=== PATIENT | male | born 1965 | race Caucasian/White ===

== ENCOUNTER 2025-01-16 12:46 | Emergency (ER) | payer OTHER, MEDICAID, SELFPAY ==
[2025-01-16 12:53] VITALS: BP 151/91; PULSE 80; TEMP 37; O2SAT 98; BMI 31.2
[2025-01-16 13:02] VITALS: O2SAT 98
[2025-01-16 13:08] LABS: Hematocrit 45.5 % (42.0-54.0); Hemoglobin 15.5 g/dL (14.0-18.0); Immature Granulocytes Abs Auto 0.02 10^3/uL (0.00-0.03); Immature Granulocytes Pct Auto 0.3 % (0.0-0.5); Lymphocytes Absolute Auto 2.4 10^3/uL (1.2-3.8); Mean Corpuscular HGB Conc 34.1 g/dL (29.9-35.2); Mean Corpuscular Hemoglobin 30.0 pg (25.9-34.0); Mean Corpuscular Volume 88.0 fL (80.0-94.0); Platelet Count 227 10^3/uL (150-450); Red Blood Count 5.17 10^6/uL (4.70-6.10); White Blood Count 7.7 10^3/uL (4.0-11.0)
[2025-01-16 13:09] LABS: Glucose Urine UA 100 mg/dL (NEGATIVE)
--- NOTE | 2025-01-16 13:15 | CT_ITS ---
The [address] [address] Patient Name: LEIGHA NUNEZ MRN: [id number] date: 1965 Sex: M Assigned Patient Location: ER Current Patient Location: ER Accession/Order Number: [id number] Exam Date: 01/16/2025 13:35 Report Date: 01/16/2025 14:16 At the request of: JACQUIE DUGAN MD Procedure: CT abdomen pelvis wo con CT abdomen pelvis wo con 01/16/2025 1:52 PM SIGNS AND SYMPTOMS: ^left flank pain, blood in stool TECHNIQUE: Multidetector ct axial images of the abdomen and pelvis were obtained without IV contrast. Multiplanar reformats were performed and reviewed to further define anatomy and possible pathology. CT was performed with one or more of the following dose reduction techniques: Automated exposure control, adjustment of the mA and/or kV according to patient size, or use of iterative reconstruction technique. COMPARISON: None. FINDINGS: Lower Chest: There is dependent atelectasis in the lung bases. ABDOMEN: Liver: Within normal limits. Bile Ducts: Normal caliber. Gallbladder: Previously removed Pancreas: Within normal limits. Spleen: Within normal limits. Adrenals: Within normal limits. Kidneys: Within normal limits. Pelvis: Reproductive Organs: No pelvic masses. Ureters: Within normal limits. Bladder: Within normal limits. Bowel: Normal caliber. Mesenteric Lymph Nodes: No enlarged mesenteric lymph nodes. Peritoneum: No ascites or free air, no fluid collection. Vessels: Atherosclerotic changes are noted in the abdominal aorta. Retroperitoneum: Within normal limits. Abdominal Wall: Fat-containing inguinal hernias are present bilaterally. Bones: Degenerative changes are noted in the thoracolumbar spine. Degenerative changes are present in the sacroiliac joints. CT/CT abdomen pelvis wo con IMPRESSION: No bowel obstruction or obstructive uropathy. No free fluid. Fat-containing inguinal hernias are present bilaterally. Impression dictated by: Alejandro Puentes M.D. 01/16/2025 2:16 PM Dictation Location: [place] [address] Electronically authenticated by: [id number] Y Date: 01/16/2025 14:16
--- NOTE | 2025-01-16 13:21 | ED.ABDPAIN1 ---
HPI - Abdominal Pain General Chief Complaint: Abdominal Pain Stated Complaint: L FLANK PAIN RECTAL BLEEDING Time Seen by Provider: 01/16/25 13:00 Source: patient Mode of arrival: walk-in Limitations: no limitations History of Present Illness HPI narrative: The patient is 59 years old male is coming to the ER with a constipation associated with blood in stool since last night, patient mentioned that he also have the flank pain, no nausea no vomiting no decreased p.o. intake and the patient mentioned that he is diabetic although he is not taking his metformin because he did not like the way it made him feel Although he was not specific about that feeling and the patient does not have a primary care Related Data Home Medications ?Medication ?Instructions ?Recorded ?Confirmed cholestyramine (with sugar) 4 gram 1 ea PO BID 01/16/25 01/16/25 powder for susp in a packet pantoprazole 40 mg tablet,delayed 40 mg PO DAILY 01/16/25 01/16/25 release Allergies Allergy/AdvReac Type Severity Reaction Status Date / Time Penicillins Allergy Severe Rash Verified 01/16/25 12:57 Review of Systems ROS Status of ROS 10 or more systems reviewed and unremarkable except as noted in history and below PFSH PFSH Social History Little interest or pleasure in doing things: not at all Feeling down, depressed, or hopeless: not at all Exam Narrative Exam Narrative: Nurses notes and vital signs reviewed and patient is not hypoxic. General: Well-appearing and in no apparent distress. Skin: Warm, dry, no pallor noted. No rash. Head: Normocephalic, atraumatic. Neck: Supple, non-tender. Eye: Pupils are equal, round and EOMI. No scleral icterus. Cardiovascular: Regular Rate and Rhythm without murmur, gallop or rub. Respiratory: No accessory muscle use or respiratory distress. Lungs are clear to auscultation, no wheezing, rales or rhonchi Chest Wall: no tenderness Back: No midline thoracic or lumbar vertebral tenderness. No CVA tenderness Musculoskeletal: normal ROM, no calf or popliteal tenderness, no lower extremity edema/swelling GI: Abdomen is soft, non-distended. Normal bowel sounds. No masses appreciated. No tenderness to palpation. No rebound, guarding, or rigidity noted. Rectal examination shows no hemorrhoid and no active bleeding although occult blood is positive Neurological: A&O x4. No cranial nerve dysfunction observed. No truncal ataxia. Moves all extremities. Sensation intact. Psychiatric: Cooperative and interactive. Normal mood and affect. Constitutional Vital Signs, click to edit/add: Last Vital Signs Temp 98.6 F 01/16/25 12:53 Pulse 67 01/16/25 15:09 Resp 16 01/16/25 15:09 BP 114/82 01/16/25 15:09 Pulse Ox 97 01/16/25 15:09 O2 Del Method Room Air 01/16/25 13:02 Course Vital Signs Vital signs: Vital Signs Temperature 98.6 F 01/16/25 12:53 Pulse Rate 80 01/16/25 12:53 Respiratory Rate 20 01/16/25 12:53 Blood Pressure 151/91 H 01/16/25 12:53 Pulse Oximetry 98 01/16/25 12:53 Oxygen Delivery Method Room Air 01/16/25 12:53 Temperature 98.6 F 01/16/25 12:53 Pulse Rate 67 01/16/25 15:09 Respiratory Rate 16 01/16/25 15:09 Blood Pressure 114/82 01/16/25 15:09 Pulse Oximetry 97 01/16/25 15:09 Oxygen Delivery Method Room Air 01/16/25 13:02 MDM - Abdominal Pain MDM Narrative Medical decision making narrative: The patient presentation with the blood in stool could be secondary to constipation although the patient did not have an external hemorrhoid but he did mention that this happened after having a bowel movement twice since last night Patient does not take any anticoagulation he is not taking his metformin as well for his diabetes CBC and chemistry showed no acute significant pathology except for elevated blood sugar of 207 I did explain to the patient the importance of taking his metformin and having primary care follow-up The patient CAT scan of the abdomen showed no acute pathology and no kidney stone Urinalysis showed no UTI The patient right now we will continue managing his constipation with outpatient follow-up with his primary care Patient mentioned that when he was following up with his previous primary care he was told that his prostate testing shows elevated result and he need to follow-up with urology I did explain to him that he still need to follow-up with the primary care but the patient requested referral to Dr. Mccarty which he was provided with Lab Data Labs: Lab Results 01/16/25 01/16/25 01/16/25 Range/Units 13:00 13:01 13:10 WBC 7.7 (4.0-11.0) 10^3/uL RBC 5.17 (4.70-6.10) 10^6/uL Hgb 15.5 (14.0-18.0) g/dL Hct 45.5 (42.0-54.0) % MCV 88.0 (80.0-94.0) fL MCH 30.0 (25.9-34.0) pg MCHC 34.1 (29.9-35.2) g/dL RDW 11.9 (11.0-15.0) % Plt Count 227 (150-450) 10^3/uL MPV 9.5 (9.5-13.5) fL Neut % (Auto) 58.0 (43.0-75.0) % Lymph % (Auto) 31.1 (20.5-60.0) % [place] % (Auto) 7.1 (1.7-12.0) % Eos % (Auto) 3.2 (0.9-7.0) % Baso % (Auto) 0.3 (0.2-2.0) % Neut # (Auto) 4.5 (1.4-6.5) 10^3/uL Lymph # (Auto) 2.4 (1.2-3.8) 10^3/uL [place] # (Auto) 0.6 (0.3-0.8) 10^3/uL Eos # (Auto) 0.3 (0.0-0.7) 10^3/uL Baso # (Auto) 0.0 (0.0-0.1) 10^3/uL Abs Immat Gran (auto) 0.02 (0.00-0.03) 10^3/uL Imm/Tot Granulo (auto) 0.3 (0.0-0.5) % Sodium 137 (136-145) mmol/L Potassium 4.0 (3.5-5.1) mmol/L Chloride 103 (98-107) mmol/L Carbon Dioxide 26.6 (21.0-32.0) mmol/L Anion Gap 11.4 BUN 13.0 (7.0-18.0) mg/dL Creatinine 1.28 (0.70-1.30) mg/dL Est GFR ( Amer) >60 (>=60 mL/min/1.73m^2) Est GFR (Non-Af Amer) 57 L (>=60 mL/min/1.73m^2) BUN/Creatinine Ratio 10.2 Glucose 207 H (74-106) mg/dL Calcium 8.9 (8.5-10.1) mg/dL Total Bilirubin 0.3 (0.2-1.0) mg/dL AST 27 (15-37) U/L ALT 45 (16-63) U/L Alkaline Phosphatase 97 (46-116) U/L Total Protein 7.9 (6.4-8.2) g/dL Albumin 3.7 (3.4-5.0) g/dL Globulin 4.2 g/dL Albumin/Globulin Ratio 0.9 Urine Color Lt. yellow (YELLOW) Urine Clarity Clear (CLEAR) Urine pH 6.0 (5.0-9.0) Ur Specific Jacobson <=1.005 A (1.005-1.025) Urine Protein Negative (NEG/TRACE) mg/dL Urine Glucose (UA) 100 A (NEGATIVE) mg/dL Urine Ketones Negative (NEGATIVE) mg/dL Urine Occult Blood Trace-i (NEGATIVE) Urine Nitrite Negative (NEGATIVE) Urine Bilirubin Negative (NEGATIVE) Urine Urobilinogen 0.2 (0.2-1.0) EU/dL Ur Leukocyte Esterase Negative (NEGATIVE) Urine RBC None seen (0-2) #/HPF Urine WBC None seen (NONE SEEN) #/HPF Ur Squamous Epith Cells None seen (NONE/RARE) #/LPF Urine Crystals None seen (None Seen) #/HPF Urine Bacteria Trace A (NONE SEEN) #/HPF Urine Casts None seen (NONE SEEN) #/LPF Urine Mucus None seen (NONE SEEN) Ur Culture Indicated? No Stool Occult Blood Positive A Discharge Plan Discharge Chief Complaint: Abdominal Pain Clinical Impression: Constipation, Blood in stool Patient Disposition: Home, Self-Care Time of Disposition Decision: 15:55 Condition: Good Prescriptions / Home Meds: No Action pantoprazole 40 mg tablet,delayed release (DR/EC) 40 mg PO DAILY cholestyramine (with sugar) 4 gram powder in packet 1 ea PO BID Print Language: [place] Instructions: Constipation (DC), Acute Abdominal Pain (DC) Referrals: Physician,Non-Staff, [Primary Care Provider] - 1 week Tyrone Mccarty MD [Physician, Urology] - 1 week
[2025-01-16 13:28] LABS: Cast Seen? NONE SEEN #/LPF (NONE SEEN); Crystals Seen? None Seen #/HPF (None Seen); Urine Culture Indicated NO
[2025-01-16 13:29] LABS: Alanine Aminotransferase 45 U/L (16-63); Albumin Globulin Ratio 0.9; Albumin Level 3.7 g/dL (3.4-5.0); Alkaline Phosphatase 97 U/L (46-116); Anion Gap 11.4; Aspartate Amino Transferase 27 U/L (15-37); Blood Urea Nitrogen 13.0 mg/dL (7.0-18.0); Calcium 8.9 mg/dL (8.5-10.1); Carbon Dioxide 26.6 mmol/L (21.0-32.0); Chloride 103 mmol/L (98-107); Estimated GFR (African America >60 (>=60 mL/min/1.73m^2); Estimated GFR (Non-African Ame 57 (>=60 mL/min/1.73m^2); Globulin 4.2 g/dL; Glucose 207 mg/dL (74-106); Potassium 4.0 mmol/L (3.5-5.1); Sodium 137 mmol/L (136-145); Total Protein 7.9 g/dL (6.4-8.2)
[2025-01-16] MEDS: KETOROLAC TROMETHAMINE 30 MG/ML VIAL 15 MG IVP (13:47)
[2025-01-16 15:09] VITALS: BP 114/82; PULSE 67; O2SAT 97
== END 2025-01-16 16:04 | disposition home or self-care (01) ==
PROVIDERS: Emergency Provider Emergency Medicine
DX: K59.00 Constipation, unspecified (principal); K92.1 Melena; E11.9 Type 2 diabetes mellitus without complications; T38.3X6A Underdosing of insulin and oral hypoglycemic [antidiabetic] drugs, initial encounter; Z91.128 Patient's intentional underdosing of medication regimen for other reason
CPT/HCPCS: 36415; 74176; 80053; 81001; 85025; 96374; 99285; G0328; J1885